=== PATIENT | male | born 1965 | race Caucasian/White ===

== ENCOUNTER 2022-05-17 16:29 | Emergency (ER) | payer OTHER ==
[~2022-05-17] VITALS: Ht 177.8 cm; Wt 97.5 kg
[2022-05-17 16:34] VITALS: BP 140/84
[2022-05-17] MEDS ORDERED: TORADOL IM STA (16:45)
[2022-05-17 16:46] VITALS: BP 140/84
--- NOTE | 2022-05-17 16:51 | ER.PDOC ---
General Chief Complaint: Extremities Stated Complaint: ELBOW PAIN Time seen by MD: 16:47 Source: patient Exam Limitations: no limitations History of Present Illness Initial Comments Right elbow pain since yesterday. Patient wrestled 2 days ago and started experiencing right elbow pain the next days. No deformity. No redness. No fever or chills. Occurred: yesterday Recent Injury: Yes Where: home Severity: moderate Exacerbated By: movement of Relieved By: nothing Quality: pain, tenderness Past Medical History Medical History: hypertension Surgical History: cholecystectomy Family History Significant Family History: no pertinent family hx Social History Smoking: non-smoker Alcohol Use: occassionally Drug Use: none Review of Systems Constitutional: no symptoms reported EENTM: no symptoms reported Respiratory: no symptoms reported Cardiovascular: no symptoms reported Gastrointestinal: no symptoms reported Musculoskeletal: see HPI All Other Systems: Reviewed and Negative Physical Exam General Appearance: alert, no distress Upper Extremity: tenderness (Posterior right elbow at the insertion of tendon, no swelling, no deformity, no redness or erythema), limited ROM Skin: color nml, warm/dry Vascular: no vascular compromise Neuro/Psych: sensation nml, motor nml Central Exam: oriented X3, CN's nml as tested, nml speech, nml cognition, nml mood/affect Neck/Back: nml inspection Respiratory: no resp distress, breath sounds nml CVS: reg rate & rhythm, heart sounds nml Abdomen: non-tender, no organomegaly, nml bowels sounds Results/Orders Results/Orders Orders - GETACHEW IGNACIO MD Xr Elbow Rt (05/17/22 16:45) Ketorolac Tromethamine (Toradol) (05/17/22 16:45) Vital Signs Date Time Temp Pulse Resp B/P (MAP) Pulse Ox O2 Delivery O2 Flow Rate FiO2 05/17/22 17:23 98.3 62 18 118/73 (88) 98 Room Air* 0 21 05/17/22 16:46 98.3 73 20 140/84 (102) 97 Room Air* 0 21 05/17/22 16:34 98.3 73 20 140/84 (102) 97 Room Air* 0 21 05/17/22 16:34 98.3 73 20 05/17/22 16:34 98.3 73 20 Administered Medications Medications (Trade) Dose Ordered Sig/[place] Route PRN Reason Start Time Stop Time Status Last Admin Dose Admin Ketorolac Tromethamine (Toradol) 60 mg STAT STAT IM 05/17/22 16:45 05/17/22 16:47 DC 05/17/22 17:20 60 MG Progress Progress X-rays of right elbow shows no acute bony abnormality. Patient is feeling better with Toradol shot. ER DEPART Departure Time of Disposition: 17:40 Disposition: 01 HOME / SELF CARE / HOMELESS Impression: Primary Impression: Elbow pain, left Additional Impression: Tendinitis of elbow Condition: Improved Referrals: PCP,UNKNOWN (PCP) PRIMARY CARE PROVIDER Additional Instructions: Meloxicam Follow-up with your PCP in 2 to 3 days Return to ED if worsening pain or concerns Duration or Time Spent with Pa: 10 min Problem Qualifiers GETACHEW IGNACIO MD May 17, 2022 16:51
--- NOTE | 2022-05-17 17:12 | DIREP ---
PROCEDURE:XRAY ELBOW 2VWS-RT COMPARISON:None. INDICATIONS:pain FINDINGS: BONES:No fracture. Olecranon enthesophyte. JOINTS:Mild degenerative changes. SOFT TISSUES:Normal. OTHER:Normal. CONCLUSION:No acute bony abnormality. Dictated by: Jayson Turpin M.D. on 05/17/2022 at 05:10 PM
[2022-05-17 17:23] VITALS: BP 118/73
== END 2022-05-17 17:51 | disposition home or self-care (01) ==
LOC: ER 16:29
DX: M25.521 Pain in right elbow (principal); I10 Essential (primary) hypertension; F10.20 Alcohol dependence, uncomplicated; M67.823 Other specified disorders of tendon, right elbow; Z90.49 Acquired absence of other specified parts of digestive tract
CPT/HCPCS: 96372; 99283; 73070-RT